=== PATIENT | female | born 1955 | race Caucasian/White ===

== ENCOUNTER 2018-06-01 12:50 | Emergency (ER) | payer OTHER ==
[~2018-06-01] VITALS: Ht 157.5 cm; Wt 102.8 kg
[~2018-06-01 12:50] MED LIST: GLUCOPHAGE1000 MG PO; LOVENOX100 MG/1 M PO; PROZAC20 MG PO; TOPROL XL50 MG PO
[2018-06-01 15:02] LABS: HEMATOCRIT 35.6 % (36.0-46.0); HEMOGLOBIN 11.7 G/DL (11.9-15.5); MCH 29.3 PG (29.0-34.0); MCHC 32.9 G/DL (30.0-36.0); PLATELET COUNT 220 K/uL (156-360); RBC DIS.WIDTH-CV 13.6 % (11.8-14.6); RBC DIS.WIDTH-SD 44.7 % (39-53); WHITE BLOOD COUNT 5.2 K/uL (4.1-10.2)
[2018-06-01 15:13] LABS: CHLORIDE 108 mEq/L (99-109); POTASSIUM 5.3 mEq/L (3.7-5.4); SODIUM 140 mEq/L (136-147)
[2018-06-01 15:15] LABS: GLUCOSE 104 mg/dL (70-99)
[2018-06-01 15:19] LABS: CREATININE 1.2 mg/dL (0.6-1.3); GFR ESTIMATE (CALCULATED) 49 mL/min/
[2018-06-01 15:20] LABS: UREA NITROGEN (BUN) 28 mg/dL (9-23)
[2018-06-01] MEDS ORDERED: NAPROSYN500 MG PO (16:19)
[2018-06-01] MEDS ORDERED: PERCOCET 5/31 TABLET PO (16:19)
[2018-06-01 16:37] VITALS: BP 111/66
== END 2018-06-01 16:38 | disposition home or self-care (01) ==
LOC: EME 12:50
PROVIDERS: Emergency Medicine
DX: M17.11 Unilateral primary osteoarthritis, right knee (principal); M25.571 Pain in right ankle and joints of right foot; M25.561 Pain in right knee; Z91.81 History of falling; I10 Essential (primary) hypertension; E11.9 Type 2 diabetes mellitus without complications; Z79.84 Long term (current) use of oral hypoglycemic drugs; Z86.711 Personal history of pulmonary embolism; Z86.73 Personal history of transient ischemic attack (TIA), and cerebral infarction without residual deficits
CPT/HCPCS: 73564; 80048; 85027; 85610; 85730; 93971; 99281; 99285; J1885